=== PATIENT | female | born 1955 | race Caucasian/White ===

== ENCOUNTER 2019-08-14 10:34 | Inpatient (IN) ==
--- NOTE | 2019-07-30 15:33 | PAT Medication Instructions ---
Medication Instructions Date of Service July 30, 2019 Home Medications aspirin [Aspirin Low Dose] 81 mg PO QAM bisoprolol fumarate 2.5 mg PO QAM calcium carbonate-vitamin D3 [Calcium 600 + D(3)] 1 cap PO QAM cholecalciferol (vitamin D3) [Vitamin D3] 2,000 unit PO QAM esomeprazole magnesium [Nexium] 40 mg PO QAM glucos sul [id number]-C-Mn [Glucosamine Chondroitin] 1 cap PO QAM glycopyrrolate-formoterol [Bevespi Aerosphere] 2 puff INHALATION BID PRN hydrocodone-acetaminophen [[place]] 1 tab PO QID PRN krwklivp-gmd-jhkl-FA-lutein [Multivitamin Women 50 Plus] 1 tab PO QAM cholestyramine (with sugar) 4 g PO QAM cyclobenzaprine 10 mg PO BID nitroglycerin [Nitrostat] 0.4 mg SUBLINGUAL UD PRN Continue as directed nitroglycerin [Nitrostat] 0.4 mg SUBLINGUAL UD PRN (if needed) ASK your prescriber and surgeon aspirin [Aspirin Low Dose] 81 mg PO QAM STOP taking 2 weeks before surgery (or as soon as possible if surgery is within 2 weeks) glucos sul [id number]-jyj-zhjfk-C-Mn [Glucosamine Chondroitin] 1 cap PO QAM STOP taking 24 hours before surgery cholestyramine (with sugar) 4 g PO QAM DO NOT take the morning of surgery calcium carbonate-vitamin D3 [Calcium 600 + D(3)] 1 cap PO QAM cholecalciferol (vitamin D3) [Vitamin D3] 2,000 unit PO QAM tdrrsvyu-wuf-cuni-FA-lutein [Multivitamin Women 50 Plus] 1 tab PO QAM cyclobenzaprine 10 mg PO BID Take morning of surgery With a small sip of water, OTHERWISE NOTHING TO EAT OR DRINK AFTER MIDNIGHT: bisoprolol fumarate 2.5 mg PO QAM esomeprazole magnesium [Nexium] 40 mg PO QAM glycopyrrolate-formoterol [Bevespi Aerosphere] 2 puff INHALATION BID PRN (if needed) hydrocodone-acetaminophen [[place]] 1 tab PO QID PRN (okay to take up to 4 hours prior to surgery if needed) Take evening before surgery glycopyrrolate-formoterol [Bevespi Aerosphere] 2 puff INHALATION BID PRN (if needed) hydrocodone-acetaminophen [[place]] 1 tab PO QID PRN (if needed) cyclobenzaprine 10 mg PO BID Other Notes If you have any questions please call us at [phone] or [phone] or [phone] or [phone]
--- NOTE | 2019-07-31 10:50 | Anesthesiology Consultation ---
Date of Service July 31, 2019 Assessment & Plan (1) Encounter for pre-operative examination: - S/P L1-L3 decompression, T12-S1 fusion with iliac bolts/hardware removal: 08/14/18: Grade 1 view, MAC#3, ETT 7.0 at [facility] Chart Review Chart Review: Pending: Refer to Additional Notes / Consult section (pending preop testing (labs, EKG, CXR)) and Patient seen in Pre Admission Testing Teaching & Discussion Pre-Anesthesia Teaching/Discussion Notes: Instructed NPO after midnight before surgery,except medications with 15 cc of water. Medication instructions provided according to the PAT guidelines. History Surgery Operation Date: 08/14/19 13:00 Proposed Procedures p Right Sacroiliac Joint Fusion - Iggy Zuluaga DO Height/Weight Height: 5 ft 6 in Weight: 111.4 kg Allergies Allergy/AdvReac Type Severity Reaction Status Date / Time tetanus toxoid, adsorbed Allergy Mild n/v, Verified 07/31/19 10:44 injection site swelling/hives diflunisal Allergy Unknown unknown Verified 07/31/19 10:44 reaction meperidine Allergy Unknown pruritus Verified 07/31/19 10:44 pentazocine Allergy Unknown pruritus Verified 07/31/19 10:44 prochlorperazine AdvReac Unknown muscle Verified 07/31/19 10:44 control loss Medications Home Medications Medication Instructions Recorded Confirmed Last Taken aspirin [Aspirin Low Dose] 81 mg PO QAM 03/24/19 07/24/19 Unknown bisoprolol fumarate 2.5 mg PO QAM 03/24/19 07/24/19 Unknown calcium carbonate-vitamin D3 1 cap PO QAM 03/24/19 07/24/19 Unknown [Calcium 600 + D(3)] cholecalciferol (vitamin D3) 2,000 unit PO QAM 03/24/19 07/24/19 Unknown [Vitamin D3] esomeprazole magnesium [Nexium] 40 mg PO QAM 03/24/19 07/24/19 Unknown glucos sul [id number]-yzgru-C-Mn 1 cap PO QAM 03/24/19 07/24/19 Unknown [Glucosamine Chondroitin] glycopyrrolate-formoterol [Bevespi 2 puff INHALATION BID PRN 03/24/19 07/24/19 Unknown Aerosphere] hydrocodone-acetaminophen [[place]] 1 tab PO QID PRN 03/24/19 07/24/19 Unknown aatnsnzm-nlw-uwdu-FA-lutein 1 tab PO QAM 03/24/19 07/24/19 Unknown [Multivitamin Women 50 Plus] cholestyramine (with sugar) 4 g PO QAM 07/24/19 07/24/19 Unknown cyclobenzaprine 10 mg PO BID 07/24/19 07/24/19 Unknown nitroglycerin [Nitrostat] 0.4 mg SUBLINGUAL UD PRN 07/24/19 07/24/19 Unknown Past Medical History Medical History COPD (chronic obstructive pulmonary disease) stable Chronic back pain Degenerative disc disease GERD (gastroesophageal reflux disease) controlled Hiatal hernia History of depression History of high cholesterol Numbness and tingling of both legs r/t back issues Obesity Spinal stenosis Exercise / Class Metabolic Activity II 4-5 Yardwork/Stairs/Walk up hill (ONE FLIGHT OF STAIRS (NO CHEST PAIN/NO SOB)) Past Surgical History Surgical History History of arthroscopy RIGHT SHOULDER History of colonoscopy History of hysterectomy History of total knee replacement RIGHT KNEE AND REVISION Hx laparoscopic cholecystectomy Hx of cardiac catheterization 2008= NO STENTS Hx of section X3 Hx of hammer toe correction RIGHT Hx of spinal fusion X2 Past Anesthesia History No Hx of Anesthesia Complications and No Family Hx of Anesthesia Complications History of PONV No Hx of PONV and No Hx of Motion Sickness Social History Smoking Status: Former smoker tobacco type: cigarettes Do You Dip or Chew Tobacco: No Smoking End Date: Quit 04/2018; hx 1ppd x 30yrs Hx Alcohol Use: No Hx Substance Use: No Review of Systems Reflux controlled. Patient denies chest pain, shortness of breath, dyspnea on exertion, cough, wheezing, palpitations. Physical Exam Vital Signs VITALS BP 126/82 P 70 TEMP 98.2 SP02 95%RA RESP 18 PHYSICAL Full neck and c-spine range of motion. Full TMJ range of motion. TMD 3 finger breaths Mallampati Score 2 Dentition: full dentures upper/lower Lungs: clear throughout to auscultation Cardiac: regular rate and rhythm, no murmurs noted Spine: normal Carotid arteries: negative bruit Extremities: no edema Testing Echocardiogram Date: 12/15/18 EF 55-60%. No RWMA. No significant valvular disease. Stress Test Date: 11/03/18 Type: nuclear (Lexiscan) Based on EKG criteria, this test is negative. Based on nuclear imaging findings, there is no evidence of myocardial ischemia or infarction. LVEF 72%. RVE.
--- NOTE | 2019-07-31 11:42 | XRay Report ---
XR chest Pre-admission PA/Lat CLINICAL HISTORY: pat preoperative evaluation COMPARISON STUDY: 07/16/2018 FINDINGS: The bones soft tissues and hemidiaphragms are normal. The cardiomediastinal silhouette is n ormal. The lungs are clear. The pulmonary vasculature is normal. Chronic platelike atelectasis both l iraida bases. IMPRESSION: No acute process. The above report was generated using voice recognition software. It may contain grammatical, syntax or spelling errors. Electronically signed by: Gary Ceballos M.D. 07/31/2019 11:41 AM
[2019-07-31 13:37] LABS: Appearance Urine Clear (Clear); Basophils # (auto) 0.03 K/uL (0-0.2); Basophils % (auto) 0.4 %; Bilirubin Urine Negative (Negative); Blood Urine Negative (Negative); Color Urine Yellow; Eosinophils # (auto) 0.19 K/uL (0-0.5); Eosinophils % (auto) 2.7 %; Glucose Urine UA Negative (Negative); Hematocrit (blood only) 43.9 % (37-47); Hemoglobin 14.7 g/dL (12.0-16.0); Ketones Urine Negative (Negative); Leukocyte Esterase Urine Negative (Negative); Lymphocytes # (auto) 1.45 K/uL (1.2-3.4); Lymphocytes % (auto) 20.9 %; Mean Corpuscular Hemoglobin 31.3 pg (25-34); Mean Corpuscular Hgb Conc 33.5 g/dL (32-36); Mean Corpuscular Volume 93.4 fL (80-100); Mean Platelet Volume 10.4 fL (7.4-10.4); Monocytes # (auto) 0.69 K/uL (0.11-0.59); Monocytes % (auto) 9.9 %; Neutrophils # (auto) 4.58 K/uL (1.4-6.5); Neutrophils % (auto) 66.1 %; Nitrite Urine Negative (Negative); Platelet Count 258 K/uL (130-400); Protein Urine Negative (Negative); RDW Coefficient of Variation 12.3 % (11.5-14.5); RDW Standard Deviation 41.8 fL (36.4-46.3); Specific Gravity Urine 1.012 (1.000-1.030); Urobilinogen Urine Negative (Negative); White Blood Count 6.94 K/uL (4.8-10.8)
[2019-07-31 13:45] LABS: Calcium 9.6 mg/dl (8.5-10.1); Creatinine Clr Calc Pharmacy 72.9 ml/min; Est GFR (African American) 71.4; Est GFR (Non-African American) 61.6; Potassium 4.7 mmol/L (3.5-5.1)
[2019-07-31 13:50] LABS: Partial Thromboplastin Ratio 0.9; Partial Thromboplastin Time 25.3 Seconds (21.0-31.0); Prothrombin Time 10.5 Seconds (9.0-12.0)
[~2019-08-14 10:34] MED LIST: ACETAMINOPHEN 500 MG TAB PO SCH; CEFAZOLIN 2000MG 2,000 MG/15 ML SYR IV SCH; CeleBREX 200 MG CAP PO SCH; GABAPENTIN 600 MG DOSE PO SCH; LR 15ML/HR IV SCH
[2019-08-14] MEDS ORDERED: MIDAZOLAM HCL 1 MG/ML 2ML VIAL ONE (11:44)
[2019-08-14] MEDS ORDERED: NEOSTIGMINE METHYLSULFATE 1 MG/ML 10ML VIAL ONE (11:44)
[2019-08-14] MEDS ORDERED: fentaNYL citrate 100 MCG/2 ML VIAL ONE (11:44)
[2019-08-14] MEDS ORDERED: PROPOFOL IV EMULSION 10 MG/ML 20 ML VIAL IV ONE (11:44)
[2019-08-14] MEDS ORDERED: ONDANSETRON INJ 2 MG/ML 2 ML VIAL ONE (11:44)
[2019-08-14] MEDS ORDERED: GLYCOPYRROLATE 0.2 MG/ML VIAL ONE ×2 (11:44→14:42)
[2019-08-14] MEDS ORDERED: LIDOCAINE HCL 2% 2 ML VIAL/AMP(20MG/ML) INFIL ONE (11:44)
[2019-08-14] MEDS ORDERED: DEXAMETHASONE SOD INJ 4 MG/ML VIAL ONE ×2 (11:44→11:48)
[2019-08-14] MEDS ORDERED: ROCURONIUM BROMIDE 10 MG/ML 5 ML VIAL ONE (11:45)
[2019-08-14] MEDS ORDERED: LARYING-O-JET KIT (LTA) ONE (11:45)
[2019-08-14] MEDS ORDERED: HYDROmorphone INJ 2 MG/ML SYR/VIAL ONE (11:45)
--- NOTE | 2019-08-14 12:42 | History & Physical Bridge Note ---
Date of Service August 14, 2019 History & Physical Bridge Note I have examined the patient, reviewed the History & Physical and in the interval since the performance of the History & Physical I have noted the following changes of clinical significance: no changes noted
--- NOTE | 2019-08-14 12:43 | History & Physical Report ---
Date of Service August 14, 2019 Assessment & Plan (1) Sacroiliitis: Right sacroiliac joint fusion removal of iliac bolts Present on Admission?: Yes History of Present Illness Chief Complaint: Chronic persistent right SI joint pain Primary Care Provider: Nacho Talley This is a 64-year-old female well-known to me that presents with chronic persistent right SI joint pain. After failing extensive course of nonoperative care would like to pursue surgical intervention. Allergies Allergy/AdvReac Type Severity Reaction Status Date / Time tetanus toxoid, adsorbed Allergy Mild n/v, Verified 08/14/19 11:22 injection site swelling/hives meperidine Allergy Unknown pruritus Verified 08/14/19 11:22 pentazocine Allergy Unknown pruritus Verified 08/14/19 11:22 prochlorperazine AdvReac Unknown muscle Verified 08/14/19 11:22 control loss Home Medications Home Medications Medication Instructions Recorded Confirmed Type aspirin [Aspirin Low Dose] 81 mg PO QAM 03/24/19 08/14/19 History bisoprolol fumarate 2.5 mg PO QAM 03/24/19 08/14/19 History calcium carbonate-vitamin D3 1 cap PO QAM 03/24/19 08/14/19 History [Calcium 600 + D(3)] cholecalciferol (vitamin D3) 2,000 unit PO QAM 03/24/19 08/14/19 History [Vitamin D3] esomeprazole magnesium [Nexium] 40 mg PO QAM 03/24/19 08/14/19 History glucos sul [id number]-rzp-kjftu-C-Mn 1 cap PO QAM 03/24/19 08/14/19 History [Glucosamine Chondroitin] glycopyrrolate-formoterol [Bevespi 2 puff INHALATION BID PRN 03/24/19 08/14/19 History Aerosphere] hydrocodone-acetaminophen [[place]] 1 tab PO QID PRN 03/24/19 08/14/19 History wcdpqmou-jve-ilyp-FA-lutein 1 tab PO QAM 03/24/19 08/14/19 History [Multivitamin Women 50 Plus] cholestyramine (with sugar) 4 g PO QAM 07/24/19 08/14/19 History [Questran] cyclobenzaprine 10 mg PO BID PRN 07/24/19 08/14/19 History nitroglycerin [Nitrostat] 0.4 mg SUBLINGUAL UD PRN 07/24/19 08/14/19 History Past Med/Surg History Medical History (Updated 08/14/19 @ 12:43 by Iggy Zuulaga DO) Chronic back pain COPD (chronic obstructive pulmonary disease) stable Degenerative disc disease GERD (gastroesophageal reflux disease) controlled Hiatal hernia History of depression History of high cholesterol Numbness and tingling of both legs r/t back issues Obesity Spinal stenosis Surgical History (Updated 08/14/19 @ 11:19 by Joanna Quintanilla RN) History of arthroscopy RIGHT SHOULDER History of colonoscopy History of esophagogastroduodenoscopy (EGD) (Acute) History of hysterectomy History of total knee replacement RIGHT KNEE AND REVISION Hx laparoscopic cholecystectomy Hx of cardiac catheterization 2008= NO STENTS Hx of section X3 Hx of hammer toe correction RIGHT Hx of spinal fusion X2 Social History Preferred Language: Divehi Communication Ability: Effective Flight Communications Specialist Required: No Beliefs That Will Affect Care: None marital status: Current Living Situation: Spouse Other Information That Helps Us Care for You: No Feels Safe at Home: Yes Smoking Status: Former smoker Tobacco Type: cigarettes ; Do You Dip or Chew Tobacco: No ; Smoking End Date: Quit 04/2018; hx 1ppd x 30yrs ; Second Hand Exposure: Yes (DAILY [employer] FRIENDS) ; Hx Alcohol Use: No Hx Substance Use: No Physical Exam Physical Exam: Patient is alert and oriented neurologically intact. Results & Data Vital Signs (Past 12 Hours) Vital Signs Temp Pulse Resp BP Pulse Ox 08/14/19 11:29 36.5 C 72 18 152/78 H 97
[2019-08-14] MEDS ORDERED: ATROPINE SULFATE 0.1 MG/ML 10ML SYR IV PRN (12:51)
[2019-08-14] MEDS ORDERED: ePHEDrine sulfate 50 MG/ML AMP IV PRN (12:51)
[2019-08-14] MEDS ORDERED: ONDANSETRON INJ 2 MG/ML 2 ML VIAL IV PRN ×2 (12:51→16:24)
[2019-08-14] MEDS ORDERED: BUPIVACAINE 0.5 % 5 MG/1 ML MPF 30ML VIAL ONE (13:01)
[2019-08-14] MEDS ORDERED: EPINEPHrine INJ 1 MG/ML AMP ONE (13:01)
[2019-08-14] MEDS ORDERED: BACITRACIN INJ 50,000 UNIT VIAL ONE (13:02)
[2019-08-14] MEDS ORDERED: PHENYLEPHRINE 100MCG/ML 5ML SYR ONE (14:24)
[2019-08-14] MEDS ORDERED: ePHEDrine sulfate 50 MG/ML SYR ONE (14:24)
[2019-08-14] MEDS ORDERED: FLOSEAL HEMOSTATIC MATRIX 10ML TOP ONE (14:33)
--- NOTE | 2019-08-14 14:40 | Operative Report ---
Post Operative Report Pre & Post Diagnosis Operation Date: 08/14/19 12:25 Pre-Op Diagnosis: SI Joint Dysfunction, Sacrolitis Post-Op Diagnosis: SI Joint Dysfunction, Sacrolitis I identified the patient and participated in the time-out.: Yes Procedure Operation Date: 08/14/19 12:25 Actual Procedures #1 removal of right iliac bolts and connector. #2 open right SI joint fusion. #3 placement of 20 mm allograft filled with infuse collagen sponge in the right SI joint. #4 placement of 2 BANUELOS-coated slotted SI joint screws. Surgeon Iggy Zuluaga, DO Ring Maker Dilan Musa Estimated Blood Loss 25 Findings See Below Patient is 5 foot 6 inches tall weighing over 110 kg with a BMI in excess of 39. The patient's body habitus did add significant technical difficulty throughout the procedure adding at least 40% increase in operative time. Specimens None Indications This is a 64-year-old female well-known to the presents with above-mentioned diagnosis after failing extensive course of nonoperative care like to undergo the above-mentioned procedure. Description of Procedure Patient was met with identified and informed consent obtained. Patient was then taken to the operative suite underwent intubation placed in a prone position the Sukumar table with chest padded bolsters. The right upper buttock was then prepped and draped in normal sterile fashion. With the assistance of fluoroscopy identified the right SI joint between superior and inferior iliac spines. A second marker identification was placed on the right upper buttock in the angle of the posterior aspect of the sacral slope and sacral ala. Sharp dissection with the assistance of Bovie cautery was then performed on 200 and exposing the right SI joint. The iliac bolts was identified and removed without difficulty including its connector. They then exposed the SI joint curetting out adequate space for a 20 mm allograft filled with infuse collagen sponge to be tamped into the SI joints. After this complete I placed a second incision on the right upper lateral buttock in line with the posterior iliac slope. A guidewire was then placed in with AP lateral inlet and outlet views the guidewire was placed along the superior aspect of the SI joint to the S1 foramina. I then dilated appropriately and drilled across the guidewire. We did measure a 55 mm screw. A 55 mm BANUELOS-coated slotted screw filled with infuse collagen sponge and locally harvested autograft was then inserted demonstrating excellent position and purchase. A second screw was then placed distal to this in a similar fashion. This screw measured 40 mm in length BANUELOS-coated again filled with local autograft and infuse collagen sponge. It again demonstrated excellent position and purchase. Incision was then copiously irrigated and closed with subcutaneous Vicryl and 4 Monocryl for final skin closure. Steri- Strips dressings were placed. Patient awakened taken to PACU stable condition. Please note Dilan Musa was present at the entire procedure involved in patient positioning complex portions of the surgery and final skin closure. I attest to the content of the Intraoperative Record and any orders documented therein. Any exceptions are noted below.
--- NOTE | 2019-08-14 15:01 | Fluoroscopy Report ---
FL sacrum CLINICAL HISTORY: RT SACROILIAC JOINT FUSION COMPARISON STUDY: None. FLUOROSCOPY TIME: 2 minutes and 2 seconds. FLUOROSCOPIC IMAGES: 3 FINDINGS: These images demonstrate screws fixating the right sacroiliac joint. A previous lumbosacral fusion is noted. The hardware is intact. There are no unexpected radiopaque foreign bodies. There ar e no unexpected radiopaque foreign bodies. IMPRESSION: Expected findings following right sacroiliac joint fusion. Electronically signed by: Rogerio Montes De Oca M.D. 08/14/2019 2:59 PM
[2019-08-14] MEDS: fentaNYL citrate 100 MCG/2 ML VIAL IV PRN ×2 (15:25→15:30)
[2019-08-14] MEDS: HYDROmorphone INJ 2 MG/ML SYR/VIAL IV PRN ×2 (15:35→15:40)
--- NOTE | 2019-08-14 15:50 | Anesthesiology Progress Note ---
Date of Service August 14, 2019 Anesthesia Post Procedure Vital Signs Vital Signs: Temp Pulse Pulse Resp BP Pulse Ox 08/14/19 15:45 71 14 135/60 96 08/14/19 15:35 55 L 10 L 145/52 H 98 08/14/19 15:25 74 13 133/72 99 08/14/19 15:15 75 12 129/66 100 08/14/19 15:09 74 16 140/73 99 08/14/19 15:01 36.7 C 77 23 135/73 99 08/14/19 11:29 36.5 C 72 18 152/78 H 97 Pain Intensity Lower Back: Pain Intensity: 4 Transfer of Care Handoff Completed per policy Notes Mental Status: alert / awake / arousable and participated in evaluation Patient Amnestic to Procedure: Yes Nausea / Vomiting: adequately controlled Pain: adequately controlled Airway Patency, RR, SpO2: stable & adequate BP & HR: stable & adequate Hydration State: stable & adequate Anesthetic Complications: no major complications apparent and Pt Satisfied with anesthetic care
[2019-08-14] MEDS ORDERED: DO NOT ADMINISTER PNEUMOCOCCAL VACCINE PRN (16:24)
[2019-08-14] MEDS ORDERED: HYDROmorphone INJ 0.5 MG/0.5 ML SYR IV PRN ×2 (16:24)
[2019-08-14] MEDS ORDERED: NORCO 5/325MG HOMEPACK PO PRN (16:24)
[2019-08-14] MEDS ORDERED: LORazepam 1 MG/2 ML VIAL IV PRN (16:24)
[2019-08-14] MEDS ORDERED: MAGNESIUM HYDROXIDE SUSP 30 ML UDC PO PRN (16:24)
[2019-08-14] MEDS ORDERED: DO NOT ADMINISTER FLU VACCINE PRN (16:24)
[2019-08-14] MEDS ORDERED: NITROGLYCERIN SL 0.4 MG/TAB TAB SL PRN (16:24)
[2019-08-14] MEDS ORDERED: HYDROCODONE/ACETAMOPHEN 5/325MG TAB PO PRN (16:24)
[2019-08-14] MEDS ORDERED: LORazepam 1 MG TAB PO PRN (16:24)
[2019-08-14] MEDS ORDERED: CYCLOBENZAPRINE HCL 10 MG TAB PO PRN (17:27)
[2019-08-14] MEDS: SODIUM CHLORIDE 0.9% 1000ML 1,000 ML IV SCH (17:41)
[2019-08-14] MEDS: DOCUSATE SODIUM 100 MG CAP PO SCH (20:07)
[2019-08-14] MEDS: CEFAZOLIN 2000MG 2,000 MG/15 ML SYR IV SCH (20:07)
[2019-08-14] MEDS: HYDROCODONE/ACETAMOPHEN 5/325MG TAB PO PRN (23:24)
[2019-08-15] MEDS: SODIUM CHLORIDE 0.9% 1000ML 1,000 ML IV SCH (06:08)
[2019-08-15] MEDS: CEFAZOLIN 2000MG 2,000 MG/15 ML SYR IV SCH ×2 (06:08→12:45)
[2019-08-15] MEDS: HYDROCODONE/ACETAMOPHEN 5/325MG TAB PO PRN ×2 (06:14→10:40)
--- NOTE | 2019-08-15 08:27 | Discharge Summary ---
Date of Service August 15, 2019 Admission HPI Per Admitting Provider This is a 64-year-old female well-known to me that presents with chronic persistent right SI joint pain. After failing extensive course of nonoperative care would like to pursue surgical intervention. Principal Diagnosis Right sacroiliitis Discharge Data Allergies Allergy/AdvReac Type Severity Reaction Status Date / Time tetanus toxoid, adsorbed Allergy Mild n/v, Verified 08/14/19 11:22 injection site swelling/hives meperidine Allergy Unknown pruritus Verified 08/14/19 11:22 pentazocine Allergy Unknown pruritus Verified 08/14/19 11:22 celecoxib [From Celebrex] Allergy "Itching" Verified 08/14/19 13:08 prochlorperazine AdvReac Unknown muscle Verified 08/14/19 11:22 control loss Procedures Performed Operation Date: 08/14/19 12:25 Actual Procedures p Right Sacroiliac Joint Fusion; (Right) - Iggy Zuluaga DO s Removal of Right Iliac [place](Right) - Iggy Zuluaga DO Ordered Studies 08/14/19 12:25 FL fluoroscopy <1hr Routine FL sacrum Routine Hospital Course (1) Sacroiliitis: Patient underwent right SI joint fusion tolerated as well as taken the orthopedic floor postoperatively. Postop day #1 she was neurologically intact comfortable sitting in a chair. Her symptoms are markedly improved. Subsequently discharged home. Total Time Total Time Spent Total Time Spent (In Minutes): 20 minutes Discharge Plan Discharge Items Patient Disposition: Home - Self-Care Reason For Visit: SI Joint Dysfunction, Sacrolitis Discharge Diagnosis: Right sacroiliitis Activity: Per Instructions section Lifting: No more than 5 pounds Bathing: May shower/bathe in 3 days Exercise/Sports: Wait until after follow-up appointment Weightbearing: Right toe touch Non-emergency contact: Primary Care Provider Call non-emergency contact if: you have any medication questions Follow-up/Referrals: Nacho Talley CRNP [Primary Care Provider] - Diet: Regular Addtl Attending Provider Instructions: Patient is to follow-up as scheduled in the next 2 to 3 weeks. Pending Studies at Discharge: No Stand-Alone Forms: My [employer], Smoking Cessation Medications and DC Order Prescriptions: New oxycodone 5 mg tablet 5 mg PO Q6H PRN (Reason: pain, severe) Qty: 30 RF: 0 Continued aspirin [Aspirin Low Dose] 81 mg Tablet,Delayed Release (Dr/Ec) 81 mg PO QAM RF: 0 bisoprolol fumarate 5 mg Tablet 2.5 mg PO QAM RF: 0 esomeprazole magnesium [Nexium] 40 mg Capsule,Delayed Release(Dr/Ec) 40 mg PO QAM RF: 0 Calcium 600 + D(3) 600 mg calcium- 200 unit Capsule 1 cap PO QAM RF: 0 cholecalciferol (vitamin D3) [Vitamin D3] 2,000 unit Tablet 2,000 unit PO QAM RF: 0 Multivitamin Women 50 Plus 8 mg iron-400 mcg-300 mcg Tablet 1 tab PO QAM RF: 0 Bevespi Aerosphere 9-4.8 mcg Hfa Aerosol Inhaler 2 puff INHALATION BID PRN (Reason: Wheezing) RF: 0 Glucosamine Chondroitin 550-30-1 mg Capsule 1 cap PO QAM RF: 0 hydrocodone-acetaminophen [[place]] 5-325 mg Tablet 1 tab PO QID PRN (Reason: Pain) RF: 0 cholestyramine (with sugar) [Questran] 4 gram Powder In Packet 4 g PO QAM RF: 0 cyclobenzaprine 10 mg Tablet 10 mg PO BID PRN (Reason: Muscle Spasm) RF: 0 nitroglycerin [Nitrostat] 0.4 mg Tablet, Sublingual 0.4 mg sublingual UD PRN (Reason: Chest Pain) RF: 0 Discharge Orders: Discharge Order (Routine); Ordered 08/15/19 Ordered By: Iggy Zuluaga Admission Data Admit Date/Time: 08/14/19 15:17 Attending Provider: Iggy Zuluaga Admit Provider: Iggy Zuluaga Primary Care Provider: Nacho Talley
[2019-08-15] MEDS: DOCUSATE SODIUM 100 MG CAP PO SCH (08:58)
[2019-08-15] MEDS ORDERED: ASPIRIN 81 MG ECTAB PO SCH (09:00)
[2019-08-15] MEDS ORDERED: CHOLESTYRAMINE LIGHT 4 GM PKT PO SCH (09:00)
[2019-08-15] MEDS ORDERED: PANTOprazole 40 MG TAB PO SCH (09:00)
[2019-08-15] MEDS ORDERED: CALCIUM 600MG + VIT D 400 IU TAB PO SCH (09:00)
[2019-08-15] MEDS ORDERED: CEROVITE ADV FORMULA TAB PO SCH (09:00)
[2019-08-15] MEDS ORDERED: CHOLECALCIFEROL 1,000 UNITS TAB PO SCH (09:00)
[2019-08-16] MEDS ORDERED: BISACODYL 5 MG TABEC PO PRN (06:00)
[2019-08-16] MEDS ORDERED: POLYETHYLENE (MIRALAX) 17 GM PACK PO SCH (09:00)
== END 2019-08-15 14:03 | disposition home or self-care (01) | DRG 460 ==
LOC: ASU 10:34 → 3E 15:17

== ENCOUNTER 2023-07-31 10:47 | Inpatient (IN) ==
--- NOTE | 2023-07-29 15:24 | Anesthesiology Consultation ---
Date of Service July 29, 2023 Assessment & Plan (1) Encounter for pre-operative examination: Plan - s/p spinal cord stimulator placement 07/24/23. Discharge summary 07/26/23: "...Patient underwent spinal cord stimulator placement. Postoperatively in the recovery area she began experiencing worsening abdominal pain progressing to lower extremity weakness and numbness. She is emergently returned to the OR for evacuation of hematoma in the thoracic spine. This also involves removing her spinal cord stimulator paddle and battery. Postoperatively she recovered well. She is ambulating without difficulty. Pain well controlled. Subsequent discharge home..." -cardiology clearance 07/02/23: "...low cardiac risk..." -cardiology pre-operative evaluation 07/02/23: "...hypertension...bundle branch block and left anterior hemiblock...preoperative evaluation prior to consideration of an inserted spinal cord stimulator...nuclear stress testing 12/15/21 which did not show any signs of ischemia...Holter monitor on 12/15/21 which did not show significant arrhythmias...no problems with chest pain or chest heaviness...low risk of a cardiovascular perspective for surgical intervention..." - Per chief architect on 07/29/2023: No known infectious disease contacts, current infectious disease symptoms in past 10 days or COVID positive test result in the past 90 days. Chart Review Chart Review: Acceptable Risk for Surgery and Patient NOT seen in Pre Admission Testing History Surgery Operation Date: 07/31/23 12:25 Proposed Procedures p Spinal Cord Stimulator Implant - Iggy Zuluaga DO Height/Weight Height: 5 ft 6.5 in Weight: 100.698 kg Allergies Allergy/AdvReac Type Severity Reaction Status Date / Time tetanus toxoid, adsorbed Allergy Mild n/v, Verified 07/29/23 14:34 injection site swelling/hives meperidine Allergy Unknown pruritus Verified 07/29/23 14:34 pentazocine Allergy Unknown pruritus Verified 07/29/23 14:34 celecoxib [From Celebrex] Allergy "Itching" Verified 07/29/23 14:34 prochlorperazine AdvReac Unknown muscle Verified 07/29/23 14:34 control loss Medications Home Medications Medication Instructions Recorded Confirmed Last Taken aspirin 81 mg tablet,delayed 81 mg PO QAM 03/24/19 07/29/23 07/23/23 09:00 release (Michel Low Dose Aspirin) bisoprolol fumarate 5 mg tablet 2.5 mg PO QAM 03/24/19 07/29/23 07/23/23 09:00 calcium carbonate 600 mg-vitamin 1 cap PO QAM 03/24/19 07/29/23 07/23/23 09:00 D3 5 mcg (200 unit) capsule (Calcium 600 + D(3)) cholecalciferol (vitamin D3) 50 2,000 unit PO QAM 03/24/19 07/29/23 07/23/23 09:00 mcg (2,000 unit) tablet (Vitamin D3) glucosamine sulf dipot 1 cap PO QAM 03/24/19 07/29/23 07/22/23 chlr,msm,chond 550 mg-C 30 mg-justin 1 mg capsule (Glucosamine Chondroitin) glycopyrrolate 9 mcg-formoterol 2 puff inhalation BID PRN Wheezing 03/24/19 07/29/23 07/23/23 23:00 4.8 mcg HFA aerosol inhaler (Bevespi Aerosphere) [id number] 8 mg-folic 400 1 tab PO QAM 03/24/19 07/29/23 07/23/23 09:00 mcg-K 50 mcg-lutein 300 mcg tablet (Multivitamin Women 50 Plus) nitroglycerin 0.4 mg sublingual 0.4 mg sublingual UD PRN Chest Pain 07/24/19 07/29/23 Unknown tablet (Nitrostat) colestipol 1 gram tablet (Colestid) 2 g PO DAILY 07/15/23 07/29/23 07/23/23 23:00 oxycodone 5 mg tablet 5 mg PO Q6H PRN pain #20 tabs 07/24/23 07/29/23 Unknown tramadol 50 mg tablet 50 mg PO Q6H PRN pain, moderate 07/24/23 07/29/23 Unknown #20 tabs Past Medical History Medical History Chronic back pain COPD (chronic obstructive pulmonary disease) stable Degenerative disc disease GERD (gastroesophageal reflux disease) controlled Hiatal hernia History of depression History of high cholesterol Numbness and tingling of both legs r/t back issues Obesity Spinal stenosis Past Surgical History Surgical History Amputated toe of right foot x 2 History of arthroscopy RIGHT SHOULDER History of cataract surgery History of colonoscopy History of esophagogastroduodenoscopy (EGD) History of hysterectomy History of total knee replacement RIGHT KNEE AND REVISION Hx laparoscopic cholecystectomy Hx of cardiac catheterization 2009= NO STENTS Hx of section X3 Hx of hammer toe correction RIGHT Hx of spinal fusion X2 S/P insertion of spinal cord stimulator S/p spinal cord stimulator removal and evacuation of thoracic hematoma on 07/24/2023 [facility]. Social History Smoking Status: Former smoker tobacco type: cigarettes Smoking cigarettes per day: 1 ppd Do You Dip or Chew Tobacco: No Hx Alcohol Use: No Hx Substance Use: No substance use type: does not use Lab Results Anesthesia Preop Results Results Anesthesia Widget: WBC 18.87 K/ul (4.8-10.8) H 07/26/23 Hgb 14.0 g/dl (12.0-16.0) 07/26/23 Hct 41.1 % (37.0-47.0) 07/26/23 Plt 256 K/uL (130-400) 07/26/23 Na 140 mmol/L (136-145) 07/26/23 K 3.9 mmol/L (3.5-5.1) 07/26/23 Cl 108 mmol/L (98-107) H 07/26/23 CO2 26 mmol/L (21-32) 07/26/23 BUN 18 mg/dl (6-23) 07/26/23 Creat 0.81 mg/dl (0.6-1.2) 07/26/23 Glucose Level 147 mg/dl (70-99(Fasting)) H 07/26/23 POC Glucose 109 mg/dl (70-99) H 07/26/23 PT 10.9 Seconds (9.0-12.0) 06/20/23 PTT 27.6 Seconds (21.0-31.0) 06/20/23 INR 1.0 (0.9-1.1) 06/20/23 HA1c 6.1 % (4.5-5.6) H 07/25/23 Blood Type A Positive 07/24/23 Antibody Screen NEGATIVE 07/24/23 Testing Electrocardiogram Date: 07/02/23 Difficulty reading full EKG report due to scan quality. Provider note says: no change from 11/16/21. Available text reads: consistent with LAFB, probable anterior infarct. low QRS voltage in precordial leads. EKG done same date as cardiology office note. Chest X-Ray Date: 06/20/23 No acute chest disease Echocardiogram Date: 12/15/21 EF 55-60% Normal LV wall motion Mild atria enlargement Mild tricuspid regurgitation Stress Test Date: 12/15/21 Negative test based on EKG criteria and no evidence of myocardial ischemia or infarction based upon nuclear imaging findings EF 75%
[~2023-07-31 10:47] MED LIST changes: -CEFAZOLIN 2000MG 2,000 MG/15 ML SYR IV SCH; -CeleBREX 200 MG CAP PO SCH; +FAMOTIDINE 20 MG TAB PO SCH; -GABAPENTIN 600 MG DOSE PO SCH; +LR 60ML/HR IV SCH
[2023-07-31] MEDS ORDERED: ePHEDrine sulfate 50 MG/ML AMP IV PRN (10:59)
[2023-07-31] MEDS ORDERED: HYDROmorphone INJ 1 MG/ML SYRINGE IV PRN ×2 (10:59→15:48)
[2023-07-31] MEDS ORDERED: fentaNYL citrate PF 100 MCG/2 ML VIAL IV PRN (10:59)
[2023-07-31] MEDS ORDERED: ONDANSETRON INJ 2 MG/ML 2 ML VIAL IV PRN ×2 (10:59→15:48)
[2023-07-31] MEDS ORDERED: ATROPINE SULFATE 0.1 MG/ML 10ML SYR IV PRN (10:59)
--- NOTE | 2023-07-31 12:35 | History & Physical Bridge Note ---
Date of Service July 31, 2023 History & Physical Bridge Note I have examined the patient, reviewed the History & Physical and in the interval since the performance of the History & Physical I have noted the following changes of clinical significance: no changes noted Spinal cord stimulator placement
[2023-07-31] MEDS ORDERED: ceFAZolin 330 MG/ML 1 GM VIAL ONE ×2 (12:47→13:37)
[2023-07-31] MEDS ORDERED: BUPIVACAINE/EPINEPHRINE 0.25% 1:200,000 30 ML VIAL ONE (12:47)
[2023-07-31] MEDS ORDERED: fentaNYL citrate PF 100 MCG/2 ML VIAL ONE ×2 (12:51→14:10)
[2023-07-31] MEDS ORDERED: MIDAZOLAM HCL 1 MG/ML 2ML VIAL ONE (12:51)
[2023-07-31] MEDS ORDERED: ROCURONIUM BROMIDE 10 MG/ML 5 ML VIAL IV ONE (12:55)
[2023-07-31] MEDS ORDERED: LIDOCAINE 2% 2 ML VIAL/AMP(20MG/ML) INFIL ONE (12:55)
[2023-07-31] MEDS ORDERED: PROPOFOL IV EMULSION 10 MG/ML 20 ML VIAL IV ONE (12:55)
[2023-07-31] MEDS ORDERED: SUGAMMADEX SODIUM 200 MG/2 ML VIAL IV ONE (14:03)
--- NOTE | 2023-07-31 14:08 | Operative Report ---
Post Operative Report Pre & Post Diagnosis Operation Date: 07/31/23 12:25 Pre-Op Diagnosis: Lumbar Post Laminectomy Syndrome Post-Op Diagnosis: Lumbar Post Laminectomy Syndrome I identified the patient and participated in the time-out.: Yes Procedure Operation Date: 07/31/23 12:25 Actual Procedures #1 revision laminotomies T8, T9 and T10. #2 placement of Medtronic dorsal column stimulator from T8-T10 with nonrechargeable battery. Surgeon Iggy Zuluaga, DO Rn Utilization Management Um Grace Sanchez Estimated Blood Loss 25 Findings Consistent with Post-Op Diagnosis Specimens None Indications This is a 68-year-old female that had an attempted spinal cord stimulator placement a week ago that we had to abort secondary to an epidural hematoma. Sh sharon is here today for repeat implantation. Description of Procedure Patient was met with preoperative Case cussed all questions addressed point the patient was taken back to op suite underwent ablation placed in a prone position on the Sukumar table atop the Ken frame. Operative prominences well-padded eyes inspected to ensure no external pressure placed upon barrier. At this point cervical spine was prepped and draped in a sterile fashion. I then opened the previous laminotomy site in the thoracic spine from T8-T10. I then widened and revised the laminotomy at T10 T9 and T8 in the past days Medtronic does come stable paddle to extend from T8-T10. I would left a small bridge of bone to hold the paddle in place but had it decompressed enough for plenty of extravasation of any bleeding. Applied paddles and sewn into position and by way of a trocar the leads were taken to up the pocket on the left flank. It was attached to a battery tested for impedances. The incisions were then copiously irrigated. 15 round YOSELIN drain inserted. The excisions were then closed with subcutaneous Vicryl and 4 Monocryl for final closure. Steri-Strips sterile dressings placed. Patient waken taken to PACU in stable condition. Please note Grace Sanchez was present at the entire surgery and while the patient positioning complex course of the surgery and possible closure. I attest to the content of the Intraoperative Record and any orders documented therein. Any exceptions are noted below.
--- NOTE | 2023-07-31 14:56 | Anesthesiology Progress Note ---
Date of Service July 31, 2023 Anesthesia Post Procedure Vital Signs Vital Signs: Temp Pulse Resp BP Pulse Ox O2 Del Method 07/31/23 11:21 36.7 C 66 20 102/65 96 Room Air Pain Intensity Back: Pain Intensity: 7 Transfer of Care Handoff Completed per policy Notes Mental Status: alert / awake / arousable Patient Amnestic to Procedure: Yes Nausea / Vomiting: adequately controlled Pain: adequately controlled Airway Patency, RR, SpO2: stable & adequate BP & HR: stable & adequate Hydration State: stable & adequate Anesthetic Complications: see Notes below Notes: patient with right forearm extravasation of propofol and rocuronium upon induction of anesthesia. IV re-started and infiltrated IV removed. patient reversed with sugammadex and successfully extubated at end of procedure. Plan for ICU observation for risk of recurarization and neurological status due to prior epidural hematoma formation.
[2023-07-31] MEDS ORDERED: ALUMINUM/MAGNESIUM SUSP 30 ML UDC PO PRN (15:48)
[2023-07-31] MEDS ORDERED: PROMETHAZINE HCL 12.5 MG in SODIUM CHLORIDE 0.9% 50 ML IV PRN (15:48)
[2023-07-31] MEDS ORDERED: LORazepam 2 MG/1 ML VIAL IV PRN (15:48)
[2023-07-31] MEDS ORDERED: ONDANSETRON 4 MG OD TAB PO PRN (15:48)
[2023-07-31] MEDS ORDERED: bisacodyL 10 MG SUPP PR PRN (15:48)
[2023-07-31] MEDS ORDERED: NITROGLYCERIN SL 0.4 MG/TAB TAB SL PRN (15:48)
[2023-07-31] MEDS ORDERED: METOCLOPRAMIDE HCL INJ 5 MG/ML 2 ML VIAL IV PRN (15:48)
[2023-07-31] MEDS ORDERED: HYDROmorphone INJ 0.5 MG/0.5 ML SYR IV PRN (15:48)
[2023-07-31] MEDS ORDERED: DO NOT ADMINISTER PNEUMOCOCCAL VACCINE PRN (15:48)
[2023-07-31] MEDS ORDERED: SOD PHOSPHATE/SOD BIPHOSPHATE ENEMA 132 ML BTL PR PRN (15:48)
[2023-07-31] MEDS ORDERED: hydrOXYzine HCl 25 MG TAB PO PRN (15:48)
[2023-07-31] MEDS ORDERED: ACETAMINOPHEN 1,000 MG/100 ML VIAL IV PRN (15:48)
[2023-07-31] MEDS ORDERED: LORazepam 0.5 MG TAB PO PRN (15:48)
[2023-07-31] MEDS ORDERED: ACETAMINOPHEN 500 MG TAB PO PRN (15:48)
[2023-07-31] MEDS ORDERED: diphenhydrAMINE Capsule 25 MG CAP PO PRN (15:48)
[2023-07-31] MEDS ORDERED: NALOXONE HCL 0.4 MG/1 ML VIAL/CARP IV PRN (15:48)
[2023-07-31] MEDS ORDERED: MAGNESIUM HYDROXIDE SUSP 30 ML UDC PO PRN (15:48)
[2023-07-31] MEDS ORDERED: FAMOTIDINE 20 MG TAB PO PRN (15:48)
[2023-07-31] MEDS ORDERED: DO NOT ADMINISTER FLU VACCINE PRN (15:48)
[2023-07-31] MEDS ORDERED: SUGAMMADEX SODIUM IV PRN (15:59)
--- NOTE | 2023-07-31 16:16 | Critical Care Consultation ---
Date of Consultation July 31, 2023 Assessment & Plan (1) Misadventure during surgical and medical care: Reason Critically Ill: 68 YOF with unanticipated ICU admission secondary to IV infiltration upon induction of Anesthesia. Patient is currently 2 hours post procedure and 2 hours post reversal. Monitor respiratory efforts with ETcO2 and Spo2 as well as neurological exams. Neuro - Misadventure during induction of anesthesia with unanticipated admission to ICU, Chronic back pain, s/p spinal chord stimulator removal and replacement CAM ICU: NEGATIVE - ETcO2 monitoring through the PM- currently she is oxygenating well with adequate Respiratory rate and is on no oxygen - Sugammadex at bedside- current hospital policy is only administered by Anesthesia- Discussed with Byerasmo Messer in person - she is available and able to respond - If rapid de-escalation occurs intubation would be likely needed - Nuero exams q2 hour - YOSELIN drain in back drain serous drainage - ABX therapy per primary surgical team Cardiac - No acute needs - Hold ASA Respiratory - No acute needs - as above currently with adequate ventilation nd oxygenation GI - No acute needs RENAL/LYTES - No acute needs - No acute needs ENDO - No acute needs HEME - No acute needs - follow YOSELIN drain output ID - No concern for acute infection - postoperative ancef per surgery LINES/IV ACCESS - PIV foot Continue use of these lines DVT PROPHYLAXIS - SCDS - hold chemoprophylaxis until hemostasis is ensured - defer to orthopaedics surgical team DISPO: ICU overnight I have personally spent 40 minutes of critical care time in the direct management of this patient. This is a life/limb threatening event. This includes time spent evaluating patient, direct bedside care, chart review, placing orders, interpretation of diagnostic studies, discussion with consultants, patient, and family members, as well as other required patient management activities. This time is exclusive of all separately billable procedures, separate from and in addition to any other critical care service time. Thank you for allowing us to participate in the care of this patient. Please refer to my attending physician's documentation for any further recommendations. (2) Neurogenic claudication due to lumbar spinal stenosis: (3) S/P insertion of spinal cord stimulator: (4) Depression: History of Present Illness Reason for Consultation: infiltration of Rocuronium and Propofol at ~1300 on induction Requesting Physician: Dr. Zuluaga Attending Physician: Iggy Zuluaga, DO History of Present Illness 68 YOF came in to OR today for revision of laminotomies T8-T10 and placement of spinal cord simulator as previous placement resulted with hematoma compression spinal chord. EBL 25ml. Patient apparently had infiltration of IV prior to case start but induction with Rocuronium, Versed, Fentanyl and Propofol appears to have already gone in. She completed the case and was reversed with Sugammadex at ~1400 as well as extubated successfully. Appears induction was around [id number] with case ending at around 1430. Patient will be observed in ICU overnight for respiratory suppression or effects from NMB, will also monitor neurological status with history of epidrual hematoma, currently drain is functioning and draining. Discussed case with Anesthesia at bedside Surgeon provided update at bedside. CODE: FULL Allergies Allergy/AdvReac Type Severity Reaction Status Date / Time tetanus toxoid, adsorbed Allergy Mild n/v, Verified 07/31/23 11:23 injection site swelling/hives meperidine Allergy Unknown pruritus Verified 07/31/23 11:23 pentazocine Allergy Unknown pruritus Verified 07/31/23 11:23 celecoxib [From Celebrex] Allergy "Itching" Verified 07/31/23 11:23 prochlorperazine AdvReac Unknown muscle Verified 07/31/23 11:23 control loss Home Medications Medication Instructions Recorded Confirmed Type aspirin 81 mg tablet,delayed 81 mg PO QAM 03/24/19 07/31/23 History release (Michel Low Dose Aspirin) bisoprolol fumarate 5 mg tablet 2.5 mg PO QAM 03/24/19 07/31/23 History calcium carbonate 600 mg-vitamin 1 cap PO QAM 03/24/19 07/31/23 History D3 5 mcg (200 unit) capsule (Calcium 600 + D(3)) cholecalciferol (vitamin D3) 50 2,000 unit PO QAM 03/24/19 07/31/23 History mcg (2,000 unit) tablet (Vitamin D3) glucosamine sulf dipot 1 cap PO QAM 03/24/19 07/31/23 History chlr,msm,chond 550 mg-C 30 mg-justin 1 mg capsule (Glucosamine Chondroitin) glycopyrrolate 9 mcg-formoterol 2 puff inhalation BID PRN Wheezing 03/24/19 07/31/23 History 4.8 mcg HFA aerosol inhaler (Bevespi Munaxphere) [id number] 8 mg-folic 400 1 tab PO QAM 03/24/19 07/31/23 History mcg-K 50 mcg-lutein 300 mcg tablet (Multivitamin Women 50 Plus) nitroglycerin 0.4 mg sublingual 0.4 mg sublingual UD PRN Chest Pain 07/24/19 1 09/30/22 History tablet (Nitrostat) colestipol 1 gram tablet (Colestid) 2 g PO DAILY 07/15/23 07/31/23 History oxycodone 5 mg tablet 5 mg PO Q6H PRN pain #20 tabs 07/24/23 07/31/23 Rx tramadol 50 mg tablet 50 mg PO Q6H PRN pain, moderate 07/24/23 07/31/23 Rx #20 tabs Patient History Medical History (Updated 07/31/23 @ 16:40 by SABA De León) Obesity Spinal stenosis Hiatal hernia History of depression Numbness and tingling of both legs r/t back issues History of high cholesterol COPD (chronic obstructive pulmonary disease) stable Degenerative disc disease Chronic back pain GERD (gastroesophageal reflux disease) controlled Surgical History (Updated 07/31/23 @ 16:40 by SABA De León) S/P insertion of spinal cord stimulator S/p spinal cord stimulator removal and evacuation of thoracic hematoma on 07/24/2023 [facility]. History of cataract surgery Amputated toe of right foot x 2 History of esophagogastroduodenoscopy (EGD) Hx of hammer toe correction RIGHT Hx of spinal fusion X2 Hx of section X3 Hx laparoscopic cholecystectomy History of colonoscopy Hx of cardiac catheterization 2009= NO STENTS History of total knee replacement RIGHT KNEE AND REVISION History of arthroscopy RIGHT SHOULDER History of hysterectomy Social History Smoking Status: Former smoker Tobacco Type: Cigarettes Cigarettes Per Day: 1 ppd; Second Hand Exposure: Yes; Do You Dip or Chew Tobacco: No; Tobacco Cessation Education Requested by Patient: No Hx Alcohol Use: No Hx Substance Use: No Preferred Language: Lithuanian Communication Ability: Effective Teacher Lip Reading Required: No Beliefs That Will Affect Care: None marital status: Current Living Situation: Spouse Feels Safe at Home: Yes Safety Concerns: Feels Safe At This Time Assistive Devices: Cane and Walker Assistive Devices Comment: reading glasses Review of Systems Review of Systems: REVIEW OF SYSTEMS: Constitutional: No fever, sweats or chills Eyes: No diplopia, no worsening or blurred vision ENT: normal hearing, no trouble swallowing Respiratory: No cough, sputum, dyspnea at rest or on exertion Cardiovascular: No chest pain, tightness or palpitations Abdomen: No pain, nausea, vomiting, diarrhea or constipation Musculoskeletal: (+) chronic back pain, previous nerve stimulator commplications, Neurologic: (+)prior leg weakness, numbness/tingling, or balance problems Psychiatric: No anxiety or depression Skin: No rash or itch Physical Exam Physical Exam: PHYSICAL EXAM: General: awake, alert, no apparent distress Head: Normocephalic, atraumatic ENT: PERRLA, EOMI, no pharyngeal exudate, mucous membranes moist Neuro: AAO x 3, speech clear and appropriate, strength intact bilaterally 5/5, sensation intact and equal all extremities and dermatomes, no pronator drift Chest: equal rise and fall of the chest, no accessory muscle use, no heaves or thrills, Clear to auscultation, on room air, Cardiac: Regular rate and rhythm, telemetry reviewed- NSR, skin warm dry, cap refill <3 seconds, peripheral pulses +2 no JVD, no murmur, no edema GI: NABS x 4 quadrants, soft, nontender to palpation, no rebound, guarding or tenderness : Spontaneously voiding, no pain, no CVA tenderness, Skin: spinal incision with some oozing noted on dressing Results & Data Results & Data Vital Signs (Past 12 Hours) Vital Signs Temp Pulse Resp BP BP Pulse Ox O2 Del Method 07/31/23 14:50 65 18 137/82 100 Oxymask 07/31/23 15:20 68 16 120/85 100 Oxymask 07/31/23 15:10 36.8 C 65 18 132/88 100 Oxymask 07/31/23 15:00 65 18 132/81 100 Oxymask 07/31/23 14:40 69 18 140/88 100 Oxymask 07/31/23 14:30 36.3 C L 76 18 125/66 99 Oxymask 07/31/23 11:21 36.7 C 66 20 102/65 96 Room Air O2 Flow Rate 07/31/23 14:50 4 07/31/23 15:20 4 07/31/23 15:10 4 07/31/23 15:00 4 07/31/23 14:40 4 07/31/23 14:30 6 07/31/23 11:21 Laboratory Results Abnormal lab results 07/31/23 Range/Units 11:27 POC Glucose 130 H (70-99) mg/dl Coding Level of Care Code 24215 CRITICAL CARE 1ST 30-74M Diagnoses Misadventure during surgical and medical care Y69 Neurogenic claudication due to lumbar spinal stenosis M48.062 S/P insertion of spinal cord stimulator Z96.89 Depression F32.9
[2023-07-31] MEDS ORDERED: UMECLIDINIUM/VILANTEROL 62.5/25MCG 7 PUFFS/INHALER INH PRN (16:29)
[2023-07-31] MEDS ORDERED: SUGAMMADEX SODIUM 200 MG/2 ML VIAL IV PRN (16:44)
[2023-07-31] MEDS: ALLERGY Noted to ORDERED Medication SCH ×3 (17:18→17:21)
[2023-07-31] MEDS: LACTATED RINGER'S 1,000 ML IV SCH (17:19)
[2023-07-31] MEDS: DOCUSATE SODIUM/SENNA 50/8.6MG TAB PO SCH (19:52)
[2023-07-31] MEDS: ceFAZolin 2000MG 2,000 MG/15 ML SYR IV SCH (20:06)
[2023-07-31] MEDS: oxyCODONE HCL IR 5 MG TAB (IMMEDIATE RELEASE) PO PRN (21:07)
[2023-07-31] MEDS: traMADol HCL 50 MG TABLET PO PRN (23:36)
[2023-08-01] MEDS: ALLERGY Noted to ORDERED Medication SCH ×2 (00:39→08:24)
[2023-08-01] MEDS: oxyCODONE HCL IR 5 MG TAB (IMMEDIATE RELEASE) PO PRN ×4 (03:40→21:25)
[2023-08-01] MEDS: LACTATED RINGER'S 1,000 ML IV SCH (03:45)
[2023-08-01] MEDS: ceFAZolin 2000MG 2,000 MG/15 ML SYR IV SCH (05:41)
[2023-08-01] MEDS: POLYETHYLENE (MIRALAX) 17 GM PACK PO SCH ×4 (06:33→23:47)
[2023-08-01] MEDS: ASPIRIN 81 MG ECTAB PO SCH (08:25)
[2023-08-01] MEDS: CALCIUM 600MG + VIT D 400 IU TAB PO SCH (08:25)
[2023-08-01] MEDS: CEROVITE ADV FORMULA TAB PO SCH (08:26)
[2023-08-01] MEDS: CHOLECALCIFEROL 1,000 UNITS 25 MCG TAB PO SCH (08:26)
[2023-08-01] MEDS: BISOPROLOL FUMARATE 5 MG TAB PO SCH (08:29)
--- NOTE | 2023-08-01 08:31 | Orthopedic Progress Note ---
Date of Service August 01, 2023 Assessment & Plan (1) S/P insertion of spinal cord stimulator: Plan: At this time we will transfer to the [facility] for continue activity as tolerated. Maintain her YOSELIN drain most likely discharge home tomorrow. Admission and Anticipated Discharge Date Admission Date: July 31, 2023 Subjective Back pain controlled leg pain improved Physical Exam Physical Exam: Patient is in the chair at the bedside. She is comfortable. Is constricted testing. Results & Data Vital Signs (Past 12 Hours) Vital Signs Temp Pulse Resp BP Pulse Ox 08/01/23 07:00 63 14 95 08/01/23 06:00 103/50 L 08/01/23 06:00 62 11 L 94 08/01/23 05:00 125/59 L 08/01/23 05:00 62 12 94 08/01/23 04:00 36.9 C 60 12 95 08/01/23 04:00 116/68 08/01/23 03:00 67 12 95 08/01/23 03:00 112/58 L 08/01/23 02:00 111/57 L 08/01/23 02:00 63 10 L 95 08/01/23 01:00 118/51 L 08/01/23 01:00 61 13 96 08/01/23 00:00 128/71 08/01/23 00:00 37.1 C 60 13 95 08/01/23 00:00 57 L 07/31/23 23:00 62 14 95 07/31/23 23:00 108/66 07/31/23 22:01 117/75 07/31/23 22:00 69 18 96 07/31/23 21:03 123/60 07/31/23 21:00 81 19 99
[2023-08-01] MEDS: COLESTIPOL HCL 1 GM TAB PO SCH (08:39)
[2023-08-01] MEDS: traMADol HCL 50 MG TABLET PO PRN ×2 (10:58→19:44)
[2023-08-01] MEDS ORDERED: Nursing to Pharmacy Communication SCH (14:00)
[2023-08-01] MEDS: DOCUSATE SODIUM/SENNA 50/8.6MG TAB PO SCH (20:38)
[2023-08-02] MEDS: POLYETHYLENE (MIRALAX) 17 GM PACK PO SCH (05:52)
[2023-08-02] MEDS: oxyCODONE HCL IR 5 MG TAB (IMMEDIATE RELEASE) PO PRN (09:38)
[2023-08-02] MEDS: BISOPROLOL FUMARATE 5 MG TAB PO SCH (09:55)
[2023-08-02] MEDS: COLESTIPOL HCL 1 GM TAB PO SCH (09:59)
[2023-08-02] MEDS: CEROVITE ADV FORMULA TAB PO SCH (09:59)
[2023-08-02] MEDS: CALCIUM 600MG + VIT D 400 IU TAB PO SCH (09:59)
[2023-08-02] MEDS: CHOLECALCIFEROL 1,000 UNITS 25 MCG TAB PO SCH (10:00)
[2023-08-02] MEDS: ASPIRIN 81 MG ECTAB PO SCH (10:00)
--- NOTE | 2023-08-02 10:49 | Discharge Summary ---
Date of Service August 02, 2023 Principal Diagnosis Post lumbar laminectomy syndrome Discharge Data Allergies Allergy/AdvReac Type Severity Reaction Status Date / Time tetanus toxoid, adsorbed Allergy Mild n/v, Verified 07/31/23 11:23 injection site swelling/hives meperidine Allergy Unknown pruritus Verified 07/31/23 11:23 pentazocine Allergy Unknown pruritus Verified 07/31/23 11:23 celecoxib [From Celebrex] Allergy "Itching" Verified 07/31/23 11:23 prochlorperazine AdvReac Unknown muscle Verified 07/31/23 11:23 control loss Consultations 07/31/23 15:48 Consult Financial Counselor Routine Procedures Performed Operation Date: 07/31/23 12:25 Actual Procedures p Spinal Cord Stimulator Placement - Iggy Zuluaga DO Ordered Studies 07/31/23 12:25 FL fluoro for pain procedure Routine Hospital Course (1) Neurogenic claudication due to lumbar spinal stenosis: Patient underwent revision spinal cord stimulator placement was also taken to ICU overnight the next day she was transferred to medical floor. She is tolerated procedure well with marked improvement of her pain. Good strength testing. YOSELIN drain decreasing probably. Simply discharged home. Discharge orders instructions from the chart for further review. Total Time Total Time Spent Total Time Spent (In Minutes): 20 minutes Discharge Plan Discharge Items Patient Disposition: Home - Self-Care Reason For Visit: POSTOP Discharge Diagnosis: Postlaminectomy syndrome Activity: As commented below Non-emergency contact: Primary Care Provider Call non-emergency contact if: you have any medication questions Follow-up/Referrals: Jose Chong D.O. [Primary Care Provider] - Diet: Regular Addtl Attending Provider Instructions: ACTIVITY RECOMMENDATIONS: SELF CARE INSTRUCTIONS AFTER A LAMINECTOMY 1. No prolonged sitting (less than 30 minutes for the first 3 weeks after surgery). 2. No bending, lifting more than 5 pounds, or twisting (roll like a log when turning in bed). 3. You may shower 3 days after surgery if no drainage from wound. Thoroughly dry wound. Do not soak in the tub. 4. Please walk as much as you can for exercise. Gradually increase the distance that you walk as your endurance increases. 5. You may drive in 7-10 days if you are comfortable and no longer requiring pain medications. SPECIAL CARE INSTRUCTIONS: VERY IMPORTANT TO READ AND REVIEW A. Your surgical incision has been closed with a cosmetic suture under the skin that will dissolve in about 6 weeks. In 14 days, you can use a pair of clean scissors and cut the suture that is left outside of the skin at the ends of your incision. B. Complications are uncommon, but please contact us if you have any signs or symptoms of: 1. wound infection (fever higher than 102.5 degrees F, redness, separation of wound, drainage, or increasing pain from the incision) 2. blood clots in legs (pain, swelling, redness and warmth in legs) 3. urinary tract infection (fever higher than 102.5 degrees, burning upon urination or increased frequency of urination) 4. nerve problems (inability to walk on your toes or heels, numbness, loss of bowel or bladder control) 5. any other symptoms that concern you. C. Please call the office at if you have any concerns or questions about your operation or recovery. MANAGING PAIN AFTER SPINAL SURGERY 1. Narcotic medication is intended for short-term use and will be provided for surgical pain. Surgical pain usually lasts for a period of 4-6 weeks. Narcotic medication includes Percocet, Vicodin, Darvocet, Tylenol #3 or Lortab. 2. Longer-term pain is more appropriately treated with non-narcotic medication such as Tylenol ES. 3. Muscle spasm is not appropriately treated with narcotics. Muscle relaxers such as Soma, Flexeril or Skelaxin can be used along with Tylenol ES. 4. Remember that we all live with some "aches and pains". This is not unusual or uncommon after an injury or as we get older. 5. We will provide appropriate medication within the normal guidelines of their prescribed use. We will also be very cautious and aware of potential abuse and extended duration of patients' medication needs. 6. Please allow 2-3 days to process refills. Prescriptions will not be mailed but must be picked up at the office. FOLLOW UP VISIT: Keep your scheduled follow-up appointment. Any questions, please call the office at . Pending Studies at Discharge: No Stand-Alone Forms: My [employer], Smoking Cessation Medications and DC Order Prescriptions: Continued aspirin [Michel Low Dose Aspirin] 81 mg Tablet,Delayed Release (Dr/Ec) 81 mg PO QAM bisoprolol fumarate 5 mg Tablet 2.5 mg PO QAM Calcium 600 + D(3) 600 mg calcium- 200 unit Capsule 1 cap PO QAM cholecalciferol (vitamin D3) [Vitamin D3] 2,000 unit Tablet 2,000 unit PO QAM Multivitamin Women 50 Plus 8 mg iron-400 mcg-300 mcg Tablet 1 tab PO QAM Bevespi Aerosphere 9-4.8 mcg Hfa Aerosol Inhaler 2 puff INHALATION BID PRN (Reason: Wheezing) Glucosamine Chondroitin 550-30-1 mg Capsule 1 cap PO QAM nitroglycerin [Nitrostat] 0.4 mg Tablet, Sublingual 0.4 mg sublingual UD PRN (Reason: Chest Pain) colestipol [Colestid] 1 gram Tablet 2 g PO DAILY tramadol 50 mg tablet 50 mg PO Q6H PRN (Reason: pain, moderate) Qty: 20 0RF oxycodone 5 mg tablet 5 mg PO Q6H PRN (Reason: pain) Qty: 20 0RF Discharge Orders: Discharge Order (Routine); Ordered 08/02/23 Ordered By: Iggy Zuluaga Admission Data Admit Date/Time: 07/31/23 14:23 Attending Provider: Iggy Zuluaga Admit Provider: Iggy Zuluaga Primary Care Provider: Jose Chong Other Providers: Juancarlos Frances
== END 2023-08-02 13:40 | disposition home or self-care (01) | DRG 518 ==
LOC: ASU 10:47 → 1E 14:23 → 3N 08-01 12:42